=== PATIENT | male | born 1945 | race Caucasian/White ===

== ENCOUNTER 2019-07-24 21:17 | Emergency (ER) | payer OTHER ==
[~2019-07-24] VITALS: Ht 175.3 cm; Wt 72.6 kg
[2019-07-24 21:30] VITALS: BP 141/74
--- NOTE | 2019-07-24 21:30 | NUR ---
ED Nurse Note: Pt walked into ED from home for c/o constant headache onset two days ago. Pt also reports new onset of chills and fever earlier today at home of 100.4F. Pt temp 100.8F upon ED triage. Pt denies any cough, SOB, or chest pain. Pt appears to be breathing normal, no cardiac or respiratory distress noted. Pt is aaox4, ambulatory with steady gait. Will continue to monitor.
[2019-07-24] MEDS ORDERED: NAPROXEN250 M1 PO (21:33)
[2019-07-24] MEDS ORDERED: FLOMAX0.4 MG ORAL (21:33)
[2019-07-24] MEDS ORDERED: ATORVASTATIN CA20 MG ORAL (21:33)
[2019-07-24] MEDS ORDERED: LEVOTHYROXINE75 MCG ORAL (21:33)
--- NOTE | 2019-07-24 22:00 | NUR ---
ED Nurse Note: IV line established. Blood drawn by RN and sent to lab.
--- NOTE | 2019-07-24 22:01 | Emergency Room Report ---
History of Present Illness General Chief Complaint: Fever Source: Patient Present Illness HPI Patient is a 74-year-old male presents after increased fever and chills. 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 Prior history of asthma. Denies any current shortness of breath. Denies any cough. Had been not having any vomiting or diarrhea. Denies any headache. Some increased nasal congestion over the past few days. Denies any known sick contacts.Patient reports of increased nasal congestion for the past few days. Reports having associated body aches and joint pains. Allergies: Coded Allergies: No Known Allergies (Unverified , 07/24/19) COVID-19 Screening Contact w/high risk pt: No Recent Travel to affected area: No Experienced COVID-19 symptoms?: No Patient History Past Medical History: see triage record Reviewed Nursing Documentation: PMH: Agreed; PSxH: Agreed Review of Systems All Other Systems: negative except mentioned in HPI Physical Exam Vital Signs Date Time Temp Pulse Resp B/P (MAP) Pulse Ox O2 Delivery O2 Flow Rate FiO2 07/24/19 21:25 100.8 91 18 141/74 (96) 92 Room Air Sp02 EP Interpretation: reviewed, normal General Appearance: normal inspection, well appearing, no apparent distress, alert, GCS 15 Head: atraumatic ENT: normal ENT inspection, hearing grossly normal, normal voice Neck: normal inspection, full range of motion, supple, no bony tend Respiratory: normal inspection, lungs clear, normal breath sounds, no respiratory distress, no retraction, no wheezing Cardiovascular #1: regular rate, rhythm, no edema Gastrointestinal: normal inspection, normal bowel sounds, non tender, soft, no guarding, no hernia Genitourinary: no CVA tenderness Musculoskeletal: normal inspection, back normal, normal range of motion Neurologic: alert, motor strength/tone normal, case assembler III-XII nml as tested, oriented x3, responsive, speech normal, normal inspection Psychiatric: normal inspection, judgement/insight normal, mood/affect normal Medical Decision Making Diagnostic Impression: Primary Impression: Suspected 2019-nCoV infection ER Course Patient presented for fever. Differential diagnosis include was not limited to urinary tract infection, coronavirus infection, pneumonia, among others. Because of complexity of patient's case laboratory tests and imaging studies were ordered. Patient was noted to have fever greater than 101 degrees. Patient's history is concerning for coronavirus infection.Patient's laboratory testing was notable for some lymphopenia. Normal white blood count.Patient's laboratory testing was otherwise unremarkable. He was noted to have adequate oxygen saturation. Patient does not appear to be short of breath at this time. Patient was discussed with his insurance company will arrange follow-up visit. Patient was advised to self quarantine. He was advised to return if he began to have any worsening condition or other concerns. The patient is advised to follow up in 1-2 days. Patient is advised to return if any worsening condition or if any changes in status that are concerning. This report is dictated with [employer] ground wirer software which may occasionally lead to discrepancies related to use of this software. Labs Test 07/24/19 22:10 07/24/19 22:30 White Blood Count 5.7 K/UL (4.8-10.8) Red Blood Count 5.03 M/UL (4.70-6.10) Hemoglobin 14.9 G/DL (14.2-18.0) Hematocrit 46.2 % (42.0-52.0) Mean Corpuscular Volume 92 FL (80-99) Mean Corpuscular Hemoglobin 29.7 PG (27.0-31.0) Mean Corpuscular Hemoglobin Concent 32.3 G/DL (32.0-36.0) Red Cell Distribution Width 13.8 % (11.6-14.8) Platelet Count 164 K/UL (150-450) Mean Platelet Volume 9.4 FL (6.5-10.1) Neutrophils (%) (Auto) 75.3 % (45.0-75.0) Lymphocytes (%) (Auto) 10.3 % (20.0-45.0) Monocytes (%) (Auto) 11.8 % (1.0-10.0) Eosinophils (%) (Auto) 1.1 % (0.0-3.0) Basophils (%) (Auto) 1.5 % (0.0-2.0) Sodium Level 141 MMOL/L (136-145) Potassium Level 4.2 MMOL/L (3.5-5.1) Chloride Level 105 MMOL/L (98-107) Carbon Dioxide Level 27 MMOL/L (21-32) Anion Gap 9 mmol/L (5-15) Blood Urea Nitrogen 21 mg/dL (7-18) Creatinine 1.1 MG/DL (0.55-1.30) Estimat Glomerular Filtration Rate > 60 mL/min (>60) Glucose Level 122 MG/DL (74-106) Lactic Acid Level 1.00 mmol/L (0.4-2.0) Calcium Level 9.0 MG/DL (8.5-10.1) Total Bilirubin 0.3 MG/DL (0.2-1.0) Aspartate Amino Transf (AST/SGOT) 36 U/L (15-37) Alanine Aminotransferase (ALT/SGPT) 55 U/L (12-78) Alkaline Phosphatase 84 U/L (46-116) Total Creatine Kinase 196 U/L (26-308) Troponin I 0.002 ng/mL (0.000-0.056) Total Protein 7.2 G/DL (6.4-8.2) Albumin 3.6 G/DL (3.4-5.0) Globulin 3.6 g/dL Albumin/Globulin Ratio 1.0 (1.0-2.7) Urine Color Pale yellow Urine Appearance Clear Urine pH 5 (4.5-8.0) Urine Specific [place] 1.020 (1.005-1.035) Urine Protein Negative (NEGATIVE) Urine Glucose (UA) Negative (NEGATIVE) Urine Ketones Negative (NEGATIVE) Urine Blood 2+ (NEGATIVE) Urine Nitrite Negative (NEGATIVE) Urine Bilirubin Negative (NEGATIVE) Urine Urobilinogen Normal MG/DL (0.0-1.0) Urine Leukocyte Esterase Negative (NEGATIVE) Urine RBC 0-2 /HPF (0 - 0) Urine WBC 0 /HPF (0 - 0) Urine Squamous Epithelial Cells None /LPF (NONE/OCC) Urine Bacteria None /HPF (NONE) Last Vital Signs Date Time Temp Pulse Resp B/P (MAP) Pulse Ox O2 Delivery O2 Flow Rate FiO2 07/24/19 21:25 100.8 91 18 141/74 (96) 92 Room Air Status: improved Disposition: HOME, SELF-CARE Condition: Stable Scripts Loratadine (CLARITIN) 10 Mg Tab.rapdis 10 MG ORAL DAILY, #30 TAB Prov: Jewel Luna MD 07/24/19 Famotidine* (Pepcid 20mg tablet*) 20 Mg Tablet 20 MG ORAL TWICE A DAY, #60 TAB 0 Refills Prov: Jewel Luna MD 07/24/19 Jewel Luna MD July 24, 2019 22:01
[2019-07-24] MEDS ORDERED: Zinc Sulfate 220mg cap ORAL ONE (22:15)
--- NOTE | 2019-07-24 22:30 | NUR ---
ED Nurse Note: Pt able to use urinal at bedside with no complications.
[2019-07-24 22:47] LABS: APPEARANCE,URINE CLEAR; BILIRUBIN, URINE NEGATIVE (NEGATIVE); COLOR,URINE PALE YELLOW; GLUCOSE, URINE (UA) NEGATIVE (NEGATIVE); KETONES,URINE NEGATIVE (NEGATIVE); LEUKOCYTE ESTERASE ,URINE NEGATIVE (NEGATIVE); NITRITE,URINE NEGATIVE (NEGATIVE); PH,URINE 5 (4.5-8.0); PROTEIN,URINE NEGATIVE (NEGATIVE); UROBILINOGEN,URINE NORMAL MG/DL (0.0-1.0)
[2019-07-24 22:53] LABS: BASOPHILS % (AUTO) 1.5 % (0.0-2.0); EOSINOPHILS % (AUTO) 1.1 % (0.0-3.0); HEMATOCRIT 46.2 % (42.0-52.0); HEMOGLOBIN 14.9 G/DL (14.2-18.0); LYMPHOCYTES % (AUTO) 10.3 % (20.0-45.0); MEAN CORPUSCULAR VOLUME 92 FL (80-99); MONOCYTES % (AUTO) 11.8 % (1.0-10.0); NEUTROPHILS % (AUTO) 75.3 % (45.0-75.0); PLATELET COUNT 164 K/UL (150-450); RED BLOOD COUNT 5.03 M/UL (4.70-6.10); RED CELL DISTRIBUTION WIDTH 13.8 % (11.6-14.8); WHITE BLOOD COUNT 5.7 K/UL (4.8-10.8)
[2019-07-24 23:00] VITALS: BP 147/79
--- NOTE | 2019-07-24 23:00 | NUR ---
ED Nurse Note: Pt states he is feeling better. Pt temp has decreased after tylenol and is now 98.0F. Pt is not in any respiratory distress at this time, oxygen saturation is 99% on RA.
--- NOTE | 2019-07-24 23:11 | Diagnostic Imaging Report ---
EXAM: XR Chest, 1 View CLINICAL HISTORY: COUGH TECHNIQUE: Frontal view of the chest. COMPARISON: No relevant prior studies available. FINDINGS: Lungs: Hyperinflation. Recommend evaluation to determine if this patient would meet criteria for inclusion in an annual low dose CT chest lung cancer screening protocol. Pleural space: Unremarkable. No pneumothorax. Heart: Unremarkable. No cardiomegaly. Mediastinum: Unremarkable. Bones/joints: Unremarkable. IMPRESSION: 1. Hyperinflation. 2. Otherwise no acute abnormality. 3. Recommend evaluation to determine if this patient would meet criteria for inclusion in an annual low dose CT chest lung cancer screening protocol.
[2019-07-24 23:14] LABS: ANION GAP 9 mmol/L (5-15); BLOOD UREA NITROGEN 21 mg/dL (7-18); CARBON DIOXIDE 27 MMOL/L (21-32); CHLORIDE 105 MMOL/L (98-107); CREATININE 1.1 MG/DL (0.55-1.30); POTASSIUM 4.2 MMOL/L (3.5-5.1); SODIUM 141 MMOL/L (136-145)
--- NOTE | 2019-07-24 23:15 | NUR ---
ED Nurse Note: Spoke with case liner regarding possible transfer of pt for tele admission.
[2019-07-24 23:19] LABS: ALANINE AMINOTRANSFERASE 55 U/L (12-78); ALBUMIN 3.6 G/DL (3.4-5.0); ALKALINE PHOSPHATASE 84 U/L (46-116); ASPARTATE AMINO TRANSFERASE 36 U/L (15-37); BILIRUBIN,TOTAL 0.3 MG/DL (0.2-1.0); CREATINE KINASE 196 U/L (26-308)
--- NOTE | 2019-07-24 23:25 | NUR ---
ED Nurse Note: ERMD reassessing patient at this time, possibly DC due to stable vital signs and no signs of distress. Pt is awake, alert and talkative with ERMD.
[2019-07-24] MEDS ORDERED: CLARITIN10 M1 ORAL (23:28)
[2019-07-24] MEDS ORDERED: FAMOTIDINE20 MG ORAL (23:28)
--- NOTE | 2019-07-24 23:30 | NUR ---
ED Nurse Note: LYSSA bedside speakig with pt regarding plan of care and DC plans.
[2019-07-24 23:55] VITALS: BP 145/78
--- NOTE | 2019-07-24 23:55 | NUR ---
ER DISCHARGE NOTE: Patient is cleared to be discharged per ERMD, pt is aox4, on room air, with stable vital signs. pt was given dc and prescription instructions, pt was able to verbalize understanding, pt id band and iv site removed without complications. pt is able to ambulate with steady gait. pt took all belongings.
== END 2019-07-25 00:17 | disposition home or self-care (01) ==
LOC: EMR 21:30 → CANBEDREQ 23:46 → EMR 07-25 00:17
DX: R50.9 Fever, unspecified (principal); D72.810 Lymphocytopenia
CPT/HCPCS: 36415; 71045; 80053; 81003; 82550; 83605; 84484; 85025; 86710; 87040; 99284; J7040; U0002; 87635